=== PATIENT | male | born 1955 | race Hispanic/Latino ===

== ENCOUNTER → 2021-03-08 | Day surgery (SDC) | payer MEDICARE ==
[~2021-03-08] MED LIST: BALANCED SALT SOLN (OPTH) 15 ML BTL IO ONE; LIDOCAINE 2%/ EPINEPHRINE 20ML MDV ONE; LIDOCAINE HCL 1% 30ML-PF VIAL ONE; NEOMYCIN/POLYMYXIN/DEX (OPTH) 3.5 GM TUBE ONE; POVIDONE IODINE 5% (OPTH) 30 ML BTL ONE
[2021-03-08 17:40] VITALS: BP 137/83
== END | disposition home or self-care (01) ==
LOC: OR 14:24
PROVIDERS: ATTEND Ophthalmology
DX: H02.834 Dermatochalasis of left upper eyelid (principal); H02.831 Dermatochalasis of right upper eyelid; N40.0 Benign prostatic hyperplasia without lower urinary tract symptoms; E55.9 Vitamin D deficiency, unspecified; Z01.812 Encounter for preprocedural laboratory examination; Z20.822 Contact with and (suspected) exposure to COVID-19
CPT/HCPCS: 15823; J2001 ×2; U0002